=== PATIENT | male | born 1990 | race Caucasian/White ===

== ENCOUNTER 2021-05-03 00:16 | Inpatient (IN) | payer OTHER ==
[~2021-05-03] VITALS: Ht 182.9 cm; Wt 68.0 kg
--- NOTE | ~2021-05-03 | EMS ---
[address] [address] EMS Patient Care Report Name: PAUL CHEEK Room #: 170-4 [facility] IN M.R.#: [id number] Admission: 05/03/21 Attend Phys: Niles Iverson Discharge: 05/03/21 Date of : [birth year] Report #: [id number] THIS REPORT FOR: //name// Report Transmitted: 05/05/2021 09:41 EMS Care Summary [place], [place]/[facility] Incident [id number] @ 05/02/2021 23:54 Incident Location [address] [place] [address] Patient PAUL IRBY Male, 30 Years 1990 Patient Address [address] [place] [address] Patient History Behavioral/Psychiatric Disorder, Chief Complaint Overdose alcohol Disposition Transported No Lights/[place] Dispatch Reason Sick Person Transported To [facility] Narrative M42 arrived on scene to find the patient lying supine on the ground. Patient said he had been drinking this evening and said he was pretty heavily intoxicated. Patient said he also had felt like he might be getting sick. Patient said his body as aching and he just felt weak. Patient denied chest pain, fever, cough, or chest pain. Patient was moved to the cot and seat belts were used on the patient. En route to the hospital no changes in the patient [address] [address] EMS Patient Care Report Name: PAUL CHEEK Room #: 170-4 [facility] IN M.R.#: [id number] Admission: 05/03/21 Attend Phys: Niles Iverson Discharge: 05/03/21 Date of : [birth year] Report #: [id number] condition occurred. M42 arrived on scene of the hospital and patient care was transferred to the RN. Initial Vitals @00:06P: 132,SpO2: 95, @00:06P: 134,BP: 140/108,Glucose: 74,SpO2: 96, @00:08P: 118,R: 16,BP: 150/103,Pain: 0/10,GCS: 15,CO: 3,SpO2: 95,Revised Trauma: 12, Assessments @00:04MENTAL:No Abnormalities,SKIN:No Abnormalities,HEENT:Head/Face: No Abnormalities,Eyes: No Abnormalities,Neck/Airway: No Abnormalities,LUNG SOUNDS:General: No Abnormalities,Left Upper: No Abnormalities,Right Upper: No Abnormalities,Left Lower: No Abnormalities,Right Lower: No Abnormalities,ABDOMEN:General: No Abnormalities,Left Upper: No Abnormalities,Right Upper: No Abnormalities,Left Lower: No Abnormalities,Right Lower: No Abnormalities,PELVIS//GI:No Abnormalities,EXTREMITIES:Left Arm: No Abnormalities,Right Arm: No Abnormalities,Left Leg: No Abnormalities,Right Leg: No Abnormalities,PULSE:NEURO:No Abnormalities,@00:15MENTAL:No Abnormalities,SKIN:No Abnormalities,HEENT:Head/Face: No Abnormalities,Eyes: No Abnormalities,Neck/Airway: No Abnormalities,LUNG SOUNDS:General: No Abnormalities,Left Upper: No Abnormalities,Right Upper: No Abnormalities,Left Lower: No Abnormalities,Right Lower: No Abnormalities,ABDOMEN:General: No Abnormalities,Left Upper: No Abnormalities,Right Upper: No Abnormalities,Left Lower: No Abnormalities,Right Lower: No Abnormalities,PELVIS//GI:No Abnormalities,EXTREMITIES:Left Arm: No Abnormalities,Right Arm: No Abnormalities,Left Leg: No Abnormalities,Right Leg: No Abnormalities,PULSE:NEURO:No Abnormalities, Impression Overdose - Alcohol Procedures @00:04ALS AssessmentResponse: UnchangedSucceeded Timeline 23:51,Dispatch Notified 23:54,Dispatched 23:55,En Route 00:03,On Scene 00:04,At Patient 00:04,ALS Assessment,Response: UnchangedSucceeded, 00:06,BP: 140/108 M,PULSE: 134,RR: R,SPO2: 96 Ox,ETCO2: ,B,PAIN: ,GCS: , 00:06,BP: / M,PULSE: 132,RR: R,SPO2: 95 Ox,ETCO2: ,BG: ,PAIN: ,GCS: , 00:07,Depart Scene 00:08,BP: 150/103 M,PULSE: 118,RR: 16 R,SPO2: 95 Ox,ETCO2: ,BG: ,PAIN: 0,GCS: [address] [address] EMS Patient Care Report Name: PAUL CHEEK Room #: 170-4 [facility] IN M.R.#: [id number] Admission: 05/03/21 Attend Phys: Niles Iverson Discharge: 05/03/21 Date of : [birth year] Report #: [id number] 15, 00:21,At Destination 00:28,Call Closed 23:51,Call Received Disclaimer v1.1 Copyright 2020 [employer] This EMS Care Summary contains data elements from the applicable legal record (which may be displayed differently). It is designed to provide pertinent information for the following purposes: continuity of care, clinical quality, and state data reporting. The complete legal record is available to ED staff and administrators of the receiving hospital in [employer] Patient Tracker. All data is provided "as is."
[2021-05-03 00:44] VITALS: BP 141/96
[2021-05-03 00:55] LABS: CALCIUM 7.8 mg/dL (8.5-10.1); CREATININE 0.9 mg/dL (0.7-1.3); POTASSIUM 3.8 mmol/L (3.5-5.1)
[2021-05-03 01:02] LABS: ALBUMIN 3.9 g/dL (3.4-5.0); TOTAL BILIRUBIN 0.7 mg/dL (0.2-1.0); TOTAL PROTEIN 7.3 g/dL (6.4-8.2)
[2021-05-03 10:00] VITALS: BP 145/93
[2021-05-03] MEDS ORDERED: CHLORDIAZEPOXID25 M1 PO (10:45)
[2021-05-03] MEDS ORDERED: REGLAN 5 MG TAB5 MG PO (10:46)
[2021-05-03] MEDS ORDERED: PROTONIX40 M4 PO (10:46)
--- NOTE | 2021-05-03 12:09 | NUR ---
SPOKE TO MOTHER LOUISA, GAVE HER UPDATE ON PATIENT. MOM TOLD ME PATIENT WAS AT [facility] FOR ALCOHOL DETOX MARCH 06, FINISHED PROGRAM, HAS HX OF HAVING SEIZURES WHILE INTOXICATED, MOM BELIEVES PATIENT HAS UNTREATED ADHD AND "SOME TYPEE OF MENTAL ILLNESS" & NO PSYCH ASSESSMENT WAS DONE AT [facility].
[2021-05-03 18:23] VITALS: BP 154/100
[2021-05-06 10:08] LABS: HAV IgM AB (ANTI-HAV IgM) Negative (Negative); HEPATITIS B SURFACE AG Negative (Negative); HEPATITIS C VIRUS AB <0.1 (0.0-0.9)
== END 2021-05-03 18:23 | disposition home or self-care (01) | DRG 440 ==
LOC: ER 00:16 → EROBS 03:12
PROVIDERS: Internal Medicine Gastroenterology; Student in an Organized Health Care Education/Training Program; ADMIT Hospitalist; ATTEND Hospitalist
DX: K85.90 Acute pancreatitis without necrosis or infection, unspecified (principal); F10.229 Alcohol dependence with intoxication, unspecified; Y90.9 Presence of alcohol in blood, level not specified; F41.9 Anxiety disorder, unspecified; F32.9 Major depressive disorder, single episode, unspecified; R74.01 Elevation of levels of liver transaminase levels; K29.20 Alcoholic gastritis without bleeding; Z20.822 Contact with and (suspected) exposure to COVID-19; Z88.8 Allergy status to other drugs, medicaments and biological substances